=== PATIENT | female | born 1945 | race Caucasian/White ===

== ENCOUNTER 2023-10-11 15:07 | Observation (INO) | payer OTHER, SELFPAY ==
[2023-10-11] VITALS (17 sets, daily range): BP systolic 160–193; BP diastolic 81–107; PULSE 80–91; RESP 12–18; TEMP 36.5–36.9; O2SAT 97–100; BMI 24.7; BMI 23.1
--- NOTE | 2023-10-11 15:51 | CT_ITS ---
We are attempting to reach an attending provider to discuss findings. An addendum with communication details will be sent when the communication is complete. INDICATION: Neuro deficit, acute, stroke suspected EXAMINATION: CT BRAIN - CT Head Stroke Protocol W/O Contrast Injection TECHNIQUE: Multiple axial images were obtained of the head without intravenous contrast. A radiation dose optimization technique was used for this scan. IV Contrast dosage and agent: None. COMPARISON: FINDINGS: BRAIN PARENCHYMA: No intra- or extra-axial hemorrhage. No evidence of acute infarct. No intracranial mass or mass effect. Bilateral white matter microangiopathic ischemic changes. Posterior fossa structures are unremarkable. CSF SPACES: Appropriate for age. No hydrocephalus. Basal cisterns are patent. CALVARIUM, SKULL BASE, PARANASAL SINUSES AND MASTOID AIR CELLS: Clear. No discrete lytic or blastic abnormalities. ORBITS: Both globes, extraocular muscles, optic nerves and retrobulbar fat appear unremarkable. CT/STROKE Brain/Head without Cont IMPRESSION: Age-related changes. Low patient have underlying velocity I also reviewed images and age-related changes but are likely degenerative. Electronically Signed: Reggie Valencia DO at 16:14 EST Reading Location ID and State: [facility] / [place] Tel [phone], Service support ,
--- NOTE | 2023-10-11 15:51 | CT_ITS ---
We are attempting to reach an attending provider to discuss findings. An addendum with communication details will be sent when the communication is complete. INDICATION: Neuro deficit, acute, stroke suspected EXAMINATION: CTA HEAD, AND CTA NECK TECHNIQUE: Noncontrast axial images were obtained of the brain. Subsequently, routine carotid CT angiogram protocol was performed without and with IV contrast. In addition, images were obtained of the [place]. NASCET criteria using the distal ICAs for comparison were used for evaluation of stenoses. 3D reconstructions were reviewed. A radiation dose optimization technique was used for this scan. IV Contrast dosage and agent: COMPARISON: FINDINGS: --CTA NECK: AORTIC ARCH AND BRANCHES: Normal anatomy, patent. RIGHT CCA: No occlusion, significant stenosis or dissection. RIGHT ICA: No occlusion, significant stenosis or dissection. LEFT CCA: No occlusion, significant stenosis or dissection. LEFT ICA: No occlusion, significant stenosis or dissection. RIGHT VERTEBRAL ARTERY: No occlusion, significant stenosis or dissection. LEFT VERTEBRAL ARTERY: No occlusion, significant stenosis or dissection. NECK SOFT TISSUES: Unremarkable. --CTA HEAD: --Anterior circulation: ICAs: Calcifications at the bilateral cavernous segments with less than 50% luminal narrowing. ACAs: No significant stenosis at the visualized segments. ACOM: Present. MCAs: No significant stenosis at the visualized segments. --Posterior circulation: PCOMs: Nonvisualization bilaterally. investment professional: No significant stenosis at the visualized segments. BASILAR ARTERY: No significant stenosis. VERTEBRAL ARTERIES: Calcifications and intraluminal thrombus with severe stenosis at the level of the foramen magnum. Calcifications of the distal right vertebral artery with approximately 50% luminal narrowing. No evidence of intracranial aneurysm or vascular malformation. CT/STROKE CTA Head AND Neck W/Con IMPRESSION: Calcifications and intraluminal thrombus of the distal left vertebral artery with severe stenosis at the level of the foramen magnum. Calcifications of the distal right vertebral artery with approximately 50% luminal narrowing. Electronically Signed: Reggie Valencia DO at 16:37 EST ,
--- NOTE | 2023-10-11 15:52 | NURSING ---
STROKE ALERT CALLED
--- NOTE | 2023-10-11 15:54 | ED.VIS.STROK ---
HPI History of Present Illness Chief Complaint: Dizziness Detail of Chief Complaint: Balance being off with vomiting x 5 Informant: patient and family Limited: other (Patient hard of hearing and family over his head to speak in her language.) Onset/Context/Timing Onset: Today Context: Sudden Onset Timing: Continuous and Waxes and wanes Quality and Location: Positive for - (Balance being off) Onset: 10 AM Current Severity: Mild Maximum Severity: Moderate Worsened by: Nothing specific Relieved by: Nothing Associated Symptoms Associated Symptoms: Positive for Nausea and Vomiting (X 5); Negative for Headache Narrative Narrative: Riley is a 77-year-old woman with history of hypertension who presents with dizziness. When asked to define dizziness she defines as her balance being off. She denied double vision, blurred vision or loss of vision. She did report vomiting 5 times. She states the dizziness got significant to the point where she had to lie down and she began to vomit. She cannot attribute change in position as the cause. She states she was walking back from the mailbox when symptoms started at 10 AM. She denies trouble with speech or swallowing. She denies paresthesia, anesthesia or motor weakness. She denies cardiac or respiratory symptoms. She denies hematemesis or coffee-ground emesis. Prior similar symptoms: No Recent Illness/Hospitalization: No [facility] Medical History Hypertension Home Medications No Known/Unobtainable [No Known Home Medications] 09/11/13 [History Last Taken Unknown] Allergy/AdvReac Type Severity Reaction Status Date / Time No Known Allergies Allergy Verified 10/11/23 15:10 Social History (Updated 10/11/23 @ 15:[address] Victor M Murry MD) household members: other Smoking Status: Never smoker substance use type: does not use ROS ROS ED Constitutional Constitutional ED: Denies chills, fever(s) or subjective Eyes Eyes: Denies blurry vision, change in vision or diplopia ENT ENT ED: Denies ear pain, rhinorrhea or sore throat Cardiovascular Cardiovascular: Denies chest pain, palpitations or racing heartbeat Respiratory/Chest Respiratory/Chest: Denies cough, dyspnea or dyspnea on exertion Gastrointestinal Gastrointestinal: Reports nausea and vomiting; Denies abdominal pain, constipation, diarrhea or melena Genitourinary Genitourinary ED: Denies dysuria, hematuria or urinary frequency Musculoskeletal Musculoskeletal: Denies arthralgias, back pain, myalgias or neck pain Integumentary Denies abscess or rash Neurologic Neurologic: Denies headache(s), paresthesias or weakness Psychiatric Psychiatric: Denies anxiety or depression Endocrine Endocrinology: Denies polydipsia, polyphagia or polyuria Hematologic/Lymphatic Hematologic/Lymphatic: Denies easy bleeding or easy bruising EXAM Physical Exam Const Vital Signs: 10/11/23 15:08 10/11/23 15:19 10/11/23 15:19 Temperature 97.7 F L Temperature Source Temporal Pulse Rate 90 80 Respiratory Rate 14 16 Respiratory Effort Normal Respiratory Pattern Normal Blood Pressure 193/107 H 186/97 H Blood Pressure Mean 135 126 Pulse Ox 97 98 Oxygen Delivery Method Room Air Room Air 10/11/23 15:55 10/11/23 15:58 10/11/23 15:51 Temperature Temperature Source Pulse Rate 82 80 Respiratory Rate 16 16 Respiratory Effort Respiratory Pattern Blood Pressure 176/100 H 178/100 H Blood Pressure Mean 125 126 Pulse Ox 98 98 98 Oxygen Delivery Method Room Air Room Air Room Air Positive well nourished and well developed Constitutional Narrative: Patient is hard of hearing. Family numbers had to speak and patient's [place] tongue for her to understand some of the questions that were asked. General Appearance ED: well developed HEENT Reports TM's clear and moist mucous membranes atraumatic Tympanic Membrane ED: Yes TM's clear bilateral (There is scarring noted bilaterally. Otherwise auditory exam is normal.) Eyes PERRL and EOMs intact bilaterally Eyes Narrative: Patient has central gaze horizontal nystagmus with fast component to the right. General Eye ED: Negative for pale conjunctiva or scleral icterus Neck no lymphadenopathy, supple and no JVD Chest Wall inspection of chest normal and palpation of chest normal Resp normal respiratory effort and clear to auscultation bilaterally Cardio no murmurs Rate: regular rate Rhythm: regular rhythm and abnormal rhythm GI normal to inspection, nondistended, normoactive bowel sounds, soft to palpation, non-tender, non-distended and no masses Auscultation: normoactive bowel sounds Back/Spine no CVA tenderness Extremity normal to inspection General Extremety ED: Negative for deformity General Extremity: Negative for deformity Neuro oriented x3, CN's II-XII intact bilaterally and no sensory deficits noted Neuro Narrative: Lyudmila-Hallpike maneuver was negative. The eye askew test and the head test were negative. Patient is noted to have horizontal nystagmus with fast component to the right. Hayden Coma Scale: document GCS findings Spontaneous Obeys Commands Oriented 15 Sensorium / Orientation: alert Motor Exam: strength 5/5 throughout Psych mental status grossly normal Skin no wounds General Skin Exam: Negative for jaundice Lesions: no lesions Rashes: no rashes NIHSS NIHSS Initial: 1a Level of Consciousness: 0 1b LOC Questions (Score 2 if aphasic/stupor): 0 1c LOC Commands (Only score 1st attempt): 0 2 Best Gaze (If aphasic, use reflexive mvmts.): 0 3 Visual: 0 4 Facial Palsy: 0 5 Motor Arm Right (UN = amputation/fusion): 0 5 Motor Arm Left: 0 6 Motor Leg Right: 0 6 Motor Leg Left: 0 7 Limb ataxia (Only + if out of proportion): 0 8 Sensory (Aphasia/stupor=0 or 1, coma=2): 0 9 Best Language: 0 10 Dysarthria (mute, coma=2, intubated=UN): 0 11 Extinction and Inattention (only scored if +): 0 Total Score: 0 MDM MDM MDM Narrative Medical decision making narrative: With complaints of dizziness that essentially is continuous central gaze nystagmus and the fact that nystagmus is not positional concern that this represents a posterior circulatory stroke. Stroke team was called. Patient is outside the window for thrombolytics since onset was 10 AM. History & Record Review Discussion w/independent historian: Patient and Family Lab Data Attestation: I reviewed the patient's lab results. Lab results narrative: CBC is unremarkable. Basic metabolic panel is unremarkable. Glucose is 149 with a normal CO2 and anion gap. First troponin is normal. Labs: Laboratory Results - last 24 hr 10/11/23 10/11/23 15:45 15:55 WBC 9.1 RBC 4.30 Hgb 12.4 Hct 37.4 MCV 87.0 MCH 28.8 MCHC 33.2 RDW Std Deviation 40.1 RDW Coeff of Walter 12.6 Plt Count 187 MPV 10.8 Immature Gran % (Auto) 0.200 Neut % (Auto) 92.1 H Lymph % (Auto) 5.5 L Leon % (Auto) 1.9 Eos % (Auto) 0.1 Baso % (Auto) 0.2 Absolute Neuts (auto) 8.4 H Absolute Lymphs (auto) 0.50 L Nucleated RBC % 0 PT 12.8 INR 1.0 APTT 29.4 Sodium 138 Potassium 3.7 Chloride 105 Carbon Dioxide 31.0 Anion Gap 2 L BUN 19 H Creatinine 0.69 Estim Creat Clear Calc 43.74 Est GFR (MDRD) Af Amer 106 Est GFR (MDRD) Non-Af 88 BUN/Creatinine Ratio 27.5 H Glucose 174 H Calcium 9.5 Troponin I High Sens 4 POC Glucose 149 H Radiography Diagnostic Testing: Clinical Impression(s) from Imaging Studies Brain CT 10/11/23 15:51 IMPRESSION: Age-related changes. [place] patient have underlying velocity I also reviewed images and age-related changes but are likely degenerative. Electronically Signed: Reggie Valencia DO at 16:14 EST , ADDENDUM: 10/11/23 1623 IMPRESSION: Age-related changes. [place] patient have underlying velocity I also reviewed images and age-related changes but are likely degenerative. N.B. : The above Results were Read Back by Reggie Valencai DO to Victor M Murry MD, and understanding confirmed on 10/11/2023 16:17:00 (ET). Electronically Signed: Reggie Valencia DO at 16:14 EST , Head/Neck CTA 10/11/23 15:51 IMPRESSION: Calcifications and intraluminal thrombus of the distal left vertebral artery with severe stenosis at the level of the foramen magnum. Calcifications of the distal right vertebral artery with approximately 50% luminal narrowing. Electronically Signed: Reggie Valencia DO at 16:37 EST , EKG Initial EKG: Attestation: I personally reviewed and interpreted this EKG as follows: Interpretation: Sinus Rhythm (Rate is 85. There are premature ventricular complexes noted. IN interval is 192 ms per QRS duration 150 ms. QT duration 438 ms. Addison is to the left. There is an RR prime in V1 and V2 consistent with right bundle branch block) Treatment and Re-Evaluation Narrative: Per neurologist at [facility] recommendation is aspirin and MRI. Stroke Documentation Questions Stroke Team Activated: Yes Reviewed Inclusion/Exclusion criteria: No IV Thrombolytic Administered: No No contraindications from thrombolytic administration: No Discharge Plan Triage Chief Complaint: Dizziness ED Provider: Victor M Murry Dx/Rx/DC Orders Clinical Impression: Vertigo due to acute cerebrovascular disease, Nystagmus, Hypertension Prescriptions: No Action No Known Home Medications Primary Care Provider: Houston Collazo Referrals: Houston Collazo DO [Primary Care Provider] - Disposition Disposition: Acute Care Hospital [facility]
--- NOTE | 2023-10-11 15:55 | NURSING ---
NO OLD EKGS
[2023-10-11 16:06] LABS: Absolute Neutrophil Count 8.4 X10^3/uL (2.0-7.7); Basophil# 0.02 X10^3/uL; Basophil% 0.2 % (0-1); Eosinophil# 0.01 X10^3/uL; Eosinophils% 0.1 % (0-5); Hematocrit 37.4 % (37-47); Hemoglobin 12.4 g/dL (12.0-15.0); Lymphocyte % 5.5 % (19-41); Mean Corp Hgb Conc 33.2 g/dL (32-36); Mean Corpuscular Hgb 28.8 pg (27.0-32.0); Mean Platelet Vol. 10.8 fl (6.2-12.0); Monocyte# 0.17 X10^3/uL; Monocyte% 1.9 % (0-10); NRBC Flagged by Analyzer 0 % (0-5); Neutrophil # 8.37 X10^3/uL (2.7-7.7); Neutrophil % 92.1 % (47-70); POSITIVE DIFFERENTIAL YES; Platelet Count 187 K/mm3 (150-450); RBC Distribution Width CV 12.6 % (11.6-14.6); RBC Distribution Width SD 40.1 fl (35.1-43.9); White Blood Count 9.1 K/mm3 (4.4-11.0)
[2023-10-11 16:09] LABS: Differential Indicated SCAN CRITERIA MET
[2023-10-11 16:14] LABS: Prothrombin Time (Protime)PT. 12.8 SECONDS (11.7-14.9)
[2023-10-11 16:14] LABS: Bedside Glucose 149 mg/dL (74-106)
[2023-10-11 16:15] LABS: Partial Thromboplast Time 29.4 Seconds (24.1-36.2)
[2023-10-11 16:22] LABS: Anion Gap 2 (5-15); BUN 19 mg/dL (7-18); BUN/Creat Ratio 27.5 RATIO (10-20); Calcium,Total 9.5 mg/dL (8.5-10.1); Chloride 105 mmol/L (98-107); Creatinine, Serum 0.69 mg/dL (0.55-1.02); EST Glomerular Filtration Rate 88 mL/min (>60); Est Glom Filt Rate - Afr Amer 106 mL/min (>60); Estimated Creatinine Clearance 43.74 ml/min; Glucose 174 mg/dL (74-106); Potassium 3.7 mmol/L (3.5-5.1); Sodium Level 138 mmol/L (136-145); Troponin-I HS 4 pg/mL (3.0-54.0)
--- NOTE | 2023-10-11 16:45 | NURSING ---
DR NICK BAKER
--- NOTE | 2023-10-11 16:52 | NURSING ---
PCU OBS [facility]ERO [facility]STIB[facility]ILAR INSUFFICIENCY
[2023-10-11 17:16] LABS: Differential Comment SCANNED
--- NOTE | 2023-10-11 17:36 | PCM.HP.STD ---
HPI - General General Date of Admission: 10/11/23 Date of Service: 10/11/23 Chief Complaint: Dizziness HPI Narrative ANGELITA DELGADO, is a 77F with a history of hypertension who presented to [facility] 10/11 with dizziness/being off balance with vomiting 5 times. She is dizzy to the point she had to lay down. This all started at 10 AM. Patient presented to the ED and stroke team was called, patient outside time window for thrombolytics. In ED telemetry stroke neurologist recommended admission with echo and MRI head without contrast. Hospitalist contacted for admission. Patient seen with family members at bedside, somewhat poor historian with difficulty describing her symptoms however she reports when she was up moving around earlier she had a dizzy feeling at 10 AM and it was not associated with going from sitting to standing and would be at random though it has not happened when she has been sitting down. Cannot describe this sensation any further but did vomit 5 times. She denies any changes in vision, has a slight headache but has no other complaints at this time. [facility] Medical History Hypertension Home Medications metoprolol tartrate 50 mg tablet 50 mg PO DAILY 10/11/23 [History Last Taken Unknown] metoprolol tartrate 50 mg tablet (Lopressor) 25 mg PO QHS 10/11/23 [History Last Taken Unknown] Allergy/AdvReac Type Severity Reaction Status Date / Time No Known Allergies Allergy Verified 10/11/23 15:10 Social History (Updated 10/11/23 @ 15:[address] Victor M Murry MD) household members: other Smoking Status: Never smoker substance use type: does not use ROS ROS Narrative General: Denies fever/chills HENT: Slight headache, denies stuffy nose, denies sore throat EYES: Denies changes in vision Resp: Denies cough, denies shortness of breath Cardiac: Denies chest pain GI: Denies abdominal pain, denies changes in bowel, had episodes of emesis earlier : Denies changes in urination Extremity: Denies swelling MSK: Denies weakness Neuro: Denies any numbness/tingling, had dizzy feeling earlier most recently as she was coming into the ER Heme: Denies any bleeding or bruising Skin: Denies rashes Psychiatric: No complaints voiced Vital Signs Vital Signs Vital Signs: 10/11/23 15:08 10/11/23 15:19 10/11/23 15:19 Temperature 97.7 F L Temperature Source Temporal Pulse Rate 90 80 Respiratory Rate 14 16 Respiratory Effort Normal Respiratory Pattern Normal Blood Pressure 193/107 H 186/97 H Blood Pressure Mean 135 126 Pulse Ox 97 98 Oxygen Delivery Method Room Air Room Air 10/11/23 15:55 10/11/23 15:58 10/11/23 15:51 Temperature Temperature Source Pulse Rate 82 80 Respiratory Rate 16 16 Respiratory Effort Respiratory Pattern Blood Pressure 176/100 H 178/100 H Blood Pressure Mean 125 126 Pulse Ox 98 98 98 Oxygen Delivery Method Room Air Room Air Room Air 10/11/23 16:21 10/11/23 16:30 10/11/23 16:50 Temperature Temperature Source Pulse Rate 86 82 82 Respiratory Rate 16 18 16 Respiratory Effort Respiratory Pattern Blood Pressure 162/86 H 163/89 H 163/89 H Blood Pressure Mean 111 113 113 Pulse Ox 99 99 99 Oxygen Delivery Method Room Air Room Air 10/11/23 17:00 10/11/23 17:07 10/11/23 17:30 Temperature Temperature Source Pulse Rate 83 89 86 Respiratory Rate 12 16 14 Respiratory Effort Respiratory Pattern Blood Pressure 161/83 H 172/99 H 165/96 H Blood Pressure Mean 109 123 119 Pulse Ox 100 97 97 Oxygen Delivery Method Room Air Room Air Room Air Weight Weight: 67.449 kg Body Mass Index (BMI) 24.7 Physical Exam Narrative General: Alert, oriented, no apparent distress HEENT: Atraumatic, normocephalic Eyes: Anicteric, normal conjunctiva, extraocular movements intact however has some nystagmus on vertical gaze and what seems to be sustained nystagmus on far left lateral gaze Neck: Supple Respiratory: Clear to auscultation bilaterally, normal respiratory effort Cardiovascular: Regular rate and rhythm GI: Soft, nontender, nondistended Extremities: No edema Musculoskeletal: Strength 5 out of 5 in right upper extremity, 5 out of 5 left upper extremity, 5 out of 5 right lower extremity, 5 out of 5 left lower extremity Neuro: No overt focal neurological deficits, cranial nerves II through XII intact, [id number] without significant difficulty bilaterally Skin: No rashes appreciated Psych: Cooperative Results Lab / Micro Data 10/11/23 15:45 10/11/23 15:45 Labs: Laboratory Results - last 24 hr 10/11/23 15:45: WBC 9.1, RBC 4.30, Hgb 12.4, Hct 37.4, MCV 87.0, MCH 28.8, MCHC 33.2, RDW Std Deviation 40.1, RDW Coeff of Walter 12.6, Plt Count 187, MPV 10.8, Immature Gran % (Auto) 0.200, Neut % (Auto) 92.1 H, Lymph % (Auto) 5.5 L, [place] % (Auto) 1.9, Eos % (Auto) 0.1, Baso % (Auto) 0.2, Absolute Neuts (auto) 8.4 H, Absolute Lymphs (auto) 0.50 L, Nucleated RBC % 0, Differential Comment SCANNED, PT 12.8, INR 1.0, APTT 29.4, Sodium 138, Potassium 3.7, Chloride 105, Carbon Dioxide 31.0, Anion Gap 2 L, BUN 19 H, Creatinine 0.69, Estim Creat Clear Calc 43.74, Est GFR (MDRD) Af Amer 106, Est GFR (MDRD) Non-Af 88, BUN/Creatinine Ratio 27.5 H, Glucose 174 H, Calcium 9.5, Troponin I High Sens 4 10/11/23 15:55: POC Glucose 149 H Imagaing Radiology Impression Brain CT 10/11/23 15:51 IMPRESSION: Age-related changes. Low patient have underlying velocity I also reviewed images and age-related changes but are likely degenerative. Electronically Signed: Reggie Valencia DO at 16:14 EST , ADDENDUM: 10/11/23 1623 IMPRESSION: Age-related changes. Low patient have underlying velocity I also reviewed images and age-related changes but are likely degenerative. N.B. : The above Results were Read Back by Reggie Valencia DO to Victor M Murry MD, and understanding confirmed on 10/11/2023 16:17:00 (ET). Electronically Signed: Reggie Valencia DO at 16:14 EST , Head/Neck CTA 10/11/23 15:51 IMPRESSION: Calcifications and intraluminal thrombus of the distal left vertebral artery with severe stenosis at the level of the foramen magnum. Calcifications of the distal right vertebral artery with approximately 50% luminal narrowing. Electronically Signed: Reggie Valencia DO at 16:37 EST , ADDENDUM: 10/11/23 1646 IMPRESSION: Calcifications and intraluminal thrombus of the distal left vertebral artery with severe stenosis at the level of the foramen magnum. Calcifications of the distal right vertebral artery with approximately 50% luminal narrowing. N.B. : The above Results were Read Back by Reggie Valencia DO to Victor M Murry MD, and understanding confirmed on 10/11/2023 16:39:22 (ET). Electronically Signed: Reggie Valencia DO at 16:37 EST , Assessment & Plan Assessment/Plan (1) Hypertension: (2) Hypertension: PLAN: Plan #Vertigo with nystagmus -Admit to tele -CT head w/ age-related changes in ED -CTA head and neck: Calcifications and intraluminal thrombus of the distal left vertebral artery with severe stenosis at the level of the foramen magnum. Calcifications of the distal right vertebral artery with approximately 50% luminal narrowing. -I personally called back and discussed these findings with stroke neurologist who evaluated her now that CTA head and neck official read was available, it was felt that there is no need for emergent transfer and it was recommended to load with 600 of Plavix and 81 of aspirin followed by Plavix 75 and aspirin 81 daily likely for 90 days -They also recommended SOC reconsult in the morning for another neuro evaluation and possibly the following day for repeat evaluation as well. Did discuss again transfer versus staying and it was felt that staying in our institution was reasonable -MRI ordered -NIH q4hr -asa, statin, Plavix -Echo w/ bubble study -PT/OT/Speech eval -Hold BP medications to allow for permissive hypertension for 24 hours unless SBP greater than 220 or DBP greater than 120 or until stroke is ruled out #Hypertension -Holding home metoprolol #DVT ppx: Lovenox subcu Renae Garland MD Time spent in the patient's overall evaluation,decision-making process, review of diagnostic data, adjustment of management, discussion with other providers, nursing nursing and ancillary staff involved in patient's care documentation, 55 minutes Charges/Coding Visit Charges Inpatient E&M: 94654 Init Hosp L2
--- NOTE | 2023-10-11 17:40 | ECHOD_ITS ---
Reason For Study: TIA/Stroke Procedure This was a 2D Doppler, Color Flow transthoracic echocardiogram. Exam performed portable in patient room. Left Ventricle Normal LV size. Mild concentric left ventricular hypertrophy. The left ventricular ejection fraction is 65 %. Stage 2 diastolic dysfunction. Right Ventricle Normal right ventricle. Atria The left atrium is mildly enlarged. Normal right atrium. Bubble contrast study is negative for PFO/ASD. Mitral Valve Mild mitral annular calcification. Mild-Moderate (1-2+) mitral valve insufficiency. Tricuspid Valve Mild tricuspid valve insufficiency. Right ventricular systolic pressure estimated to be 339 mmHg. Aortic Valve Trisinus/trileaflet aortic valve. Mild diffuse aortic valve thickening. Trivial aortic valve insufficiency. Pulmonic Valve The pulmonic valve is not well visualized. Trivial pulmonic valve insufficiency. Great Vessels Normal sized aortic root. Pericardium/Pleural No pericardial effusion. MMode/2D Measurements & Calculations LVIDd: 4.6 cm IVSd: 1.2 cm Ao root diam: 3.2 cm LVIDs: 2.9 cm LVPWd: 1.1 cm RVDd: 4.2 cm FS: 37.0 % LAV(MOD-bp): 64.2 ml LVAd ap4: 23.8 cm2 SV(MOD-sp4): 42.2 ml LAV(MOD-bp) Indexed: 37.9 ml/m2 LVLd ap4: 6.6 cm LAV(MOD-sp2): 61.5 ml EDV(MOD-sp4): 71.4 ml LAV(MOD-sp4): 52.6 ml EDV(sp4-el): 73.0 ml LVAs ap4: 13.4 cm2 LVLs ap4: 5.4 cm ESV(MOD-sp4): 29.2 ml ESV(sp4-el): 28.2 ml EF(MOD-sp4): 59.1 % EF(sp4-el): 61.3 % SV(sp4-el): 44.7 ml LA A4 area: 20.1 cm2 LA dimension(2D): 3.5 cm RA A4 area: 16.3 cm2 TAPSE: 3.2 cm Time Measurements MV dec time: 0.20 sec Doppler Measurements & Calculations MV E max rudolph: 90.1 cm/sec Lat Peak E' Rudolph: 9.1 cm/sec Med Peak E' Rudolph: 5.5 cm/sec MV A max rudolph: 84.9 cm/sec E/E' lat: 9.9 E/E' med: 16.2 MV E/A: 1.1 Ao V2 max: 168.1 cm/sec LV V1 max: 99.6 cm/sec MV dec slope: 452.7 cm/sec2 Ao max P.3 mmHg LV V1 max P.0 mmHg Ao V2 mean: 113.5 cm/sec Ao mean P.0 mmHg Ao V2 VTI: 38.2 cm PA V2 max: 89.8 cm/sec PI end-d rudolph: 95.1 cm/sec TR max rudolph: 291.9 cm/sec TR max P.1 mmHg ECHO/Echo Complete Interpretation Summary Mild concentric left ventricular hypertrophy. The left ventricular ejection fraction is 65 %. Stage 2 diastolic dysfunction. The left atrium is mildly enlarged. Mild-Moderate (1-2+) mitral valve insufficiency. Right ventricular systolic pressure estimated to be 339 mmHg. Mild tricuspid valve insufficiency. Bubble contrast study is negative for PFO/ASD. Ordering Physician: Renae Garland Referring Physician: Houston Collazo Performed By: Kelsey Estes, UVALDO, RVT
--- NOTE | 2023-10-11 17:40 | MRI_ITS ---
STUDY: MRI BRAIN WITHOUT CONTRAST REASON FOR EXAM: Female, 77 years old. r/o cva, temporary altered mental status TECHNIQUE: Standardized multiplanar fat and water weighted pulse sequences were obtained. COMPARISON: CT the brain October 11, 2023 FINDINGS: Moderate atrophy and advanced periventricular white matter ischemic changes without mass effect or restricted diffusion. Normal bilateral basal ganglia. Normal thalami. There is no extra-axial fluid accumulation. Normal flow voids within the major intracranial circulation suggesting patency by spin echo criteria. Normal sella turcica, pituitary gland, infundibular stalk, optic chiasm and hypothalamus. Normal tectal plate and pineal gland. Normal midbrain, afshan and medulla. Normal cerebellum. Normal basal cisterns. Normal bilateral temporal bones. Normal bilateral internal auditory canals. Postsurgical changes of the orbits.. Normal visualized paranasal sinuses. Normal calvarium and skull base. Normal visualized soft tissue structures. Normal visualized upper cervical spine. MRI/Brain without Contrast IMPRESSION: Moderate atrophy and advanced periventricular white matter ischemic changes without evidence for acute infarct. Electronically Signed: Cem Minor MD at 19:33 EST ,
[2023-10-11] MEDS: Ondansetron 4 MG/2 ML Vial IV ×2 (18:04→21:47)
--- NOTE | 2023-10-11 18:15 | RAD_ITS ---
INDICATION: Neuro deficit, acute, stroke suspected EXAMINATION/TECHNIQUE: X-RAY - XR Chest 1 View COMPARISON: FINDINGS: LINES/DEVICES: None. LUNGS: No consolidation, edema or effusion. Mild interstitial prominence. No pneumothorax. MEDIASTINUM AND CARDIOVASCULAR STRUCTURES: Cardiac silhouette not enlarged. Central airways and mediastinal contour are unremarkable. BONES AND SOFT TISSUES: Unremarkable. RAD/Chest 1 View IMPRESSION: Mild interstitial prominence. Electronically Signed: Reggie Valencia DO at 18:40 EST ,
[2023-10-11] MEDS: Aspirin 81 MG TAB.CHEW PO (21:45)
[2023-10-11] MEDS: Atorvastatin Calcium 80 MG Tablet PO (21:46)
[2023-10-11] MEDS: Clopidogrel Bisulfate 300 MG Tablet 600 MG PO (21:46)
[2023-10-12] VITALS (11 sets, daily range): BP systolic 140–161; BP diastolic 68–88; PULSE 71–108; RESP 12–16; TEMP 36.6–37.1; O2SAT 95–98; BMI 23.1
[2023-10-12 07:01] LABS: Absolute Lymphocyte Count 1.08 X10^3/uL (0.83-4.51); Absolute Neutrophil Count 6.8 X10^3/uL (2.0-7.7); Basophil# 0.03 X10^3/uL; Basophil% 0.3 % (0-1); Eosinophil# 0.06 X10^3/uL; Eosinophils% 0.7 % (0-5); Hematocrit 37.4 % (37-47); Hemoglobin 12.3 g/dL (12.0-15.0); Lymphocyte # 1.08 X10^3/ul (0.83-4.51); Lymphocyte % 12.4 % (19-41); Mean Corp Hgb Conc 32.9 g/dL (32-36); Mean Corpuscular Hgb 28.9 pg (27.0-32.0); Mean Platelet Vol. 10.9 fl (6.2-12.0); Monocyte# 0.64 X10^3/uL; Monocyte% 7.4 % (0-10); NRBC Flagged by Analyzer 0 % (0-5); Neutrophil # 6.84 X10^3/uL (2.7-7.7); Neutrophil % 78.7 % (47-70); Platelet Count 200 K/mm3 (150-450); RBC Distribution Width CV 12.7 % (11.6-14.6); RBC Distribution Width SD 40.9 fl (35.1-43.9); Red Blood Count 4.25 M/mm3 (4.2-5.4); White Blood Count 8.7 K/mm3 (4.4-11.0)
[2023-10-12 08:05] LABS: Anion Gap 3 (5-15); BUN 17 mg/dL (7-18); BUN/Creat Ratio 23.8 RATIO (10-20); Calcium,Total 9.7 mg/dL (8.5-10.1); Chloride 105 mmol/L (98-107); Cholesterol 164 mg/dL (200); Creatinine, Serum 0.71 mg/dL (0.55-1.02); EST Glomerular Filtration Rate 85 mL/min (>60); Est Glom Filt Rate - Afr Amer 102 mL/min (>60); Estimated Creatinine Clearance 43.74 ml/min; Glucose 104 mg/dL (74-106); High Density Lipoprotein 77 mg/dL; Potassium 3.3 mmol/L (3.5-5.1); Sodium Level 137 mmol/L (136-145); Thyroid Stim Hormone (TSH) 0.69 uIU/mL (0.358-3.74); Triglycerides 51 mg/dL; Very Low Density Lipoprotein 10 mg/dL (5-40)
[2023-10-12] MEDS: 0.9% Saline Lock 10 ML Syringe IV (09:51)
[2023-10-12] MEDS: Ondansetron 4 MG/2 ML Vial IV (09:51)
[2023-10-12] MEDS: Metoprolol Tartrate 50 MG Tablet PO (09:54)
[2023-10-12] MEDS: Clopidogrel Bisulfate 75 MG Tablet PO (09:55)
[2023-10-12] MEDS: Enoxaparin 40 MG/0.4 ML Syringe SC (09:55)
[2023-10-12] MEDS: Aspirin 81 MG TAB.CHEW PO (09:55)
--- NOTE | 2023-10-12 12:27 | PN.HOSP_ITS ---
Reason for Visit Reason for Visit: Lightheadedness Subjective Subjective Patient is a 77-year-old female who presented to the emergency department at [facility] on 10/11/2023 complaining of dizziness/lightheadedness. It started at 10 AM on the day of presentation. She reported that she felt dizzy and being off balance with vomiting 5 times. She was so dizzy that she had to lie down. Stroke team was called on arrival to the emergency department but unfortunately patient was outside the window for thrombolytics. The ED stroke neurologist recommended admission with an echo and MRI of the brain. At the time evaluation by the hospitalist on admission she was feeling somewhat better however reporting since positional changes make her worse. At the time of my evaluation today she reported that this was more like lightheadedness and dizziness. We did obtain orthostatic vital signs which were unremarkable. The CTA of her head and neck which was performed the emergency department did show calcification and thrombus in the vertebral arteries with severe stenosis of the vertebral artery. The case was discussed with the ER neurologist and they felt that she was stable to stay at this institution however did recommend initiating Plavix and aspirin after a Plavix load of 600 mg which was performed. Antihypertensives were held to allow for permissive hypertension and she was maintained on aspirin and Plavix as well as statin. Again today, the patient is a poor historian initially describing this is lightheadedness and not true dizziness however she was noted to have vertigo go with nystagmus with right lateral gaze. Neurology was reconsulted per neurology recommendations and they feel that she has vertebral artery insufficiency leading to vertigo and gait instability. Nystagmus was noted on exam when the patient was symptomatic Objective Data Objective Data Vital Signs: Vital Signs Temp Pulse Resp BP Pulse Ox O2 Del Method 98.0 F 85 14 151/68 H 96 Room Air 10/12/23 10:00 10/12/23 10:00 10/12/23 10:00 10/12/23 10:00 10/12/23 10:00 10/12/23 10:00 Oxygen Delivery Method Room Air Weight: 63.1 kg Body Mass Index (BMI) 23.1 Intake & Output: Intake and Output for Last 24 Hours 10/10/23 10/11/23 10/12/23 23:59 23:59 23:59 Intake Total 740 / 740 Balance 740 / 740 Lab / Micro Data 10/12/23 06:40 10/12/23 06:40 Labs: Laboratory Results - last 24 hr 10/11/23 15:45: WBC 9.1, RBC 4.30, Hgb 12.4, Hct 37.4, MCV 87.0, MCH 28.8, MCHC 33.2, RDW Std Deviation 40.1, RDW Coeff of Walter 12.6, Plt Count 187, MPV 10.8, Immature Gran % (Auto) 0.200, Neut % (Auto) 92.1 H, Lymph % (Auto) 5.5 L, [place] % (Auto) 1.9, Eos % (Auto) 0.1, Baso % (Auto) 0.2, Absolute Neuts (auto) 8.4 H, Absolute Lymphs (auto) 0.50 L, Nucleated RBC % 0, Differential Comment SCANNED, PT 12.8, INR 1.0, APTT 29.4, Sodium 138, Potassium 3.7, Chloride 105, Carbon Dioxide 31.0, Anion Gap 2 L, BUN 19 H, Creatinine 0.69, Estim Creat Clear Calc 43.74, Est GFR (MDRD) Af Amer 106, Est GFR (MDRD) Non-Af 88, BUN/Creatinine Ratio 27.5 H, Glucose 174 H, Calcium 9.5, Troponin I High Sens 4 10/11/23 15:55: POC Glucose 149 H 10/12/23 06:40: WBC 8.7, RBC 4.25, Hgb 12.3, Hct 37.4, MCV 88.0, MCH 28.9, MCHC 32.9, RDW Std Deviation 40.9, RDW Coeff of Walter 12.7, Plt Count 200, MPV 10.9, Immature Gran % (Auto) 0.500, Neut % (Auto) 78.7 H, Lymph % (Auto) 12.4 L, [place] % (Auto) 7.4, Eos % (Auto) 0.7, Baso % (Auto) 0.3, Absolute Neuts (auto) 6.8, Absolute Lymphs (auto) 1.08, Nucleated RBC % 0, Sodium 137, Potassium 3.3 L, Chloride 105, Carbon Dioxide 29.0, Anion Gap 3 L, BUN 17, Creatinine 0.71, Estim Creat Clear Calc 43.74, Est GFR (MDRD) Af Amer 102, Est GFR (MDRD) Non-Af 85, BUN/Creatinine Ratio 23.8 H, Glucose 104, Calcium 9.7, Triglycerides 51, Cholesterol 164, LDL Cholesterol 77, VLDL Cholesterol 10, HDL Cholesterol 77, TSH 0.69 Radiography Diagnostic Testing: Radiology Impression Brain CT 10/11/23 15:51 IMPRESSION: Age-related changes. Low patient have underlying velocity I also reviewed images and age-related changes but are likely degenerative. Electronically Signed: Reggie Valencia DO at 16:14 EST , ADDENDUM: 10/11/23 1623 IMPRESSION: Age-related changes. Low patient have underlying velocity I also reviewed images and age-related changes but are likely degenerative. N.B. : The above Results were Read Back by Reggie Valencia DO to Victor M Murry MD, and understanding confirmed on 10/11/2023 16:17:00 (ET). Electronically Signed: Reggie Valencia DO at 16:14 EST , Head/Neck CTA 10/11/23 15:51 IMPRESSION: Calcifications and intraluminal thrombus of the distal left vertebral artery with severe stenosis at the level of the foramen magnum. Calcifications of the distal right vertebral artery with approximately 50% luminal narrowing. Electronically Signed: Reggie Valencia DO at 16:37 EST , ADDENDUM: 10/11/23 1646 IMPRESSION: Calcifications and intraluminal thrombus of the distal left vertebral artery with severe stenosis at the level of the foramen magnum. Calcifications of the distal right vertebral artery with approximately 50% luminal narrowing. N.B. : The above Results were Read Back by Reggie Valencia DO to Victor M Murry MD, and understanding confirmed on 10/11/2023 16:39:22 (ET). Electronically Signed: Reggie Valencia DO at 16:37 EST , Brain MRI 10/11/23 17:40 IMPRESSION: Moderate atrophy and advanced periventricular white matter ischemic changes without evidence for acute infarct. Electronically Signed: Cem Minor MD at 19:33 EST , Chest X-Ray 10/11/23 18:15 IMPRESSION: Mild interstitial prominence. Electronically Signed: Reggie Valencia DO at 18:40 EST , Physical Exam Const alert, oriented x3, no apparent distress and well nourished Constitutional Narrative: Older, white female, sitting up in bed, family at bedside, patient appears comfortable at this time, nontoxic HEENT head/scalp atraumatic and moist oral mucous membranes HEENT Narrative: Dentition is poor, Mallampati is 2, no thrush Head and Scalp: normocephalic Resp normal respiratory effort, no retractions, no use of accessory muscles and clear to auscultation bilaterally Auscultation: Negative for rales, rhonchi or wheezes Cardio regular rate, regular rhythm, S1 normal heart sound, S2 normal heart sound, no murmurs, no rub and no clicks GI normal to inspection, nondistended, normoactive bowel sounds, soft to palpation and non-tender Extremity no clubbing, cyanosis or edema Extremity Narrative: Pedal pulses are 2+ Neuro oriented x3, CN's II-XII intact bilaterally, moves all extremities and no focal motor deficits Speech: speech normal Psych affect normal Psych Narrative: Eye contact is good, patient is pleasant Assessment & Plan Assessment/Plan (1) Vertebrobasilar insufficiency: (2) Nystagmus: (3) Vertigo: PLAN: Plan Vertigo secondary to vertebrobasilar insufficiency -MRI was unremarkable -Echocardiogram with bubble study is pending -Continue every 4 hours neurochecks -Patient has been loaded with Plavix and will continue aspirin and Plavix for 3 weeks at which point she can transition to monotherapy -Lipitor to 40 mg daily -Lipids are fairly well-controlled -Check hemoglobin A1c -Add IV fluids at 100 cc/h to help maintain blood pressure elevation -Allow for permissive hypertension for 36 hours after symptom onset with as needed antihypertensives for blood pressure greater than 220/110 -PT/OT evaluation -Discussed the case with Dr. Rizvi from [facility] neurology and he recommended that she have ongoing symptoms despite being on aspirin and Plavix that she was should be transferred for endovascular neurosurgery evaluation and recommended that we watch her here for another 24 hours and consider transfer if her symptoms do not continue to improve. -Will try scopolamine patch if not too sedating to help with symptoms Hypokalemia -40 mill equivalents p.o. potassium replacement -Recheck in a.m. Hypertension -Hold metoprolol and allow for permissive hypertension DVT prophylaxis -Enoxaparin CODE STATUS Full code Charges/Coding Visit Charges Inpatient E&M: 58964 Subs Hosp L2
[2023-10-12] MEDS: Potassium Chloride Oral Tablet 20 MEQ 40 MEQ PO (13:24)
[2023-10-12] MEDS: 0.9% Normal Saline (1000mL) 1,000 ML 100 ML IV ×2 (13:24→23:17)
[2023-10-12] MEDS: Scopolamine 1mg/72hr Patch 1 PATCH TD (13:24)
[2023-10-12] MEDS: Atorvastatin Calcium 40 MG Tablet PO (20:53)
[2023-10-13 03:00] VITALS: BP 155/84; PULSE 66; RESP 16; TEMP 37.1; O2SAT 100
[2023-10-13 05:01] LABS: Absolute Lymphocyte Count 1.58 X10^3/uL (0.83-4.51); Absolute Neutrophil Count 5.2 X10^3/uL (2.0-7.7); Basophil# 0.02 X10^3/uL; Basophil% 0.3 % (0-1); Eosinophil# 0.08 X10^3/uL; Eosinophils% 1.1 % (0-5); Hematocrit 36.9 % (37-47); Hemoglobin 11.9 g/dL (12.0-15.0); Lymphocyte # 1.58 X10^3/ul (0.83-4.51); Lymphocyte % 21.1 % (19-41); Mean Corp Hgb Conc 32.2 g/dL (32-36); Mean Corpuscular Hgb 29.6 pg (27.0-32.0); Mean Corpuscular Volume 91.8 fL (81-99); Mean Platelet Vol. 11.1 fl (6.2-12.0); Monocyte# 0.65 X10^3/uL; Monocyte% 8.7 % (0-10); NRBC Flagged by Analyzer 0 % (0-5); Neutrophil # 5.15 X10^3/uL (2.7-7.7); Neutrophil % 68.5 % (47-70); Platelet Count 198 K/mm3 (150-450); RBC Distribution Width CV 12.7 % (11.6-14.6); RBC Distribution Width SD 42.5 fl (35.1-43.9); Red Blood Count 4.02 M/mm3 (4.2-5.4); White Blood Count 7.5 K/mm3 (4.4-11.0)
[2023-10-13 05:38] LABS: Anion Gap 6 (5-15); BUN 17 mg/dL (7-18); BUN/Creat Ratio 24.1 RATIO (10-20); Calcium,Total 9.1 mg/dL (8.5-10.1); Chloride 110 mmol/L (98-107); Creatinine, Serum 0.71 mg/dL (0.55-1.02); EST Glomerular Filtration Rate 86 mL/min (>60); Est Glom Filt Rate - Afr Amer 104 mL/min (>60); Estimated Creatinine Clearance 43.74 ml/min; Glucose 101 mg/dL (74-106); Magnesium 2.3 mg/dL (1.6-2.6); Potassium 4.4 mmol/L (3.5-5.1); Sodium Level 140 mmol/L (136-145)
[2023-10-13 07:32] LABS: Hemoglobin A1c 5.3 % (3.8-5.6)
[2023-10-13 07:45] VITALS: O2SAT 99
--- NOTE | 2023-10-13 08:23 | CASEMGMT ---
Social Work As per admitting RN, pt does not have LW/POA and declined further information. ASHLEY Beck
[2023-10-13 08:30] VITALS: BP 153/82; PULSE 55; RESP 12; TEMP 36.3; O2SAT 99
[2023-10-13] MEDS: Clopidogrel Bisulfate 75 MG Tablet PO (08:33)
[2023-10-13] MEDS: Enoxaparin 40 MG/0.4 ML Syringe SC (08:33)
[2023-10-13] MEDS: Aspirin 81 MG TAB.CHEW PO (08:35)
--- NOTE | 2023-10-13 09:32 | CASEMGMT ---
Social Work PHQ-9 not completed as pt did not have a stroke. ASHLEY Beck
[2023-10-13] MEDS: 0.9% Normal Saline (1000mL) 1,000 ML 100 ML IV (09:49)
--- NOTE | 2023-10-13 11:53 | CASEMGMT ---
LYDIA AMES NOTE: Pr Dr Pena, pt will be discharging home today. LYDIA AMES to room. Pt resting in bed. Family @ bedside. Discussed therapy recommendations. Questions answered re: HHC and OP therapy. Pt and family state would like pt to get therapy in the home w/ [facility] and state are agreeable to private-pay. LYDIA AMES attempted to contact [facility] x 3 today w/no success and it is unknown if they are open today. Script for OP therapy obtained from Dr Pena and faxed to [facility]. Script also given to pt and family along w/[facility] contact #. They were instructed to contact [facility] Monday to discuss private-pay cost for therapy in the home and to schedule appt with them. They were also provided w/this RN HUI contact # and RN CM director, Anamaria, contact #, if further info/assistance is needed. They voice appreciation. Pt using walker while @ [facility] and she does not have one @ home. Family state they are planning on stopping @ the [facility] to get one and if they do not have one available there, they have another location to get one. They deny having further discharge needs or concerns and thanked RN HUI for assistance/info. Jadiel INMAN RN, CM
--- NOTE | 2023-10-13 13:05 | DS.PCM_ITS ---
Providers Date of Admission: 10/11/23 Date of Discharge: 10/13/23 Primary Care Physician: Dr. Houston Collazo DO Reason For Visit: CVA R/O Diagnosis Discharge Diagnosis (1) Vertebrobasilar insufficiency: Status: Acute Code(s): G45.0 - Vertebro-basilar artery syndrome (2) Nystagmus: Status: Acute Code(s): H55.00 - Unspecified nystagmus (3) Vertigo: Status: Acute Code(s): R42 - Dizziness and giddiness Plan Vertigo secondary to vertebrobasilar insufficiency -MRI was unremarkable -Echocardiogram with bubble study is pending -Continue every 4 hours neurochecks -Patient has been loaded with Plavix and will continue aspirin and Plavix for 3 weeks at which point she can transition to monotherapy -Lipitor to 40 mg daily -Lipids are fairly well-controlled -Check hemoglobin A1c -Add IV fluids at 100 cc/h to help maintain blood pressure elevation -Allow for permissive hypertension for 36 hours after symptom onset with as needed antihypertensives for blood pressure greater than 220/110 -PT/OT evaluation -Discussed the case with Dr. Rizvi from [facility] neurology and he recommended that she have ongoing symptoms despite being on aspirin and Plavix that she was should be transferred for endovascular neurosurgery evaluation and recommended that we watch her here for another 24 hours and consider transfer if her symptoms do not continue to improve. -Will try scopolamine patch if not too sedating to help with symptoms Hypokalemia -40 mill equivalents p.o. potassium replacement -Recheck in a.m. Hypertension -Hold metoprolol and allow for permissive hypertension DVT prophylaxis -Enoxaparin CODE STATUS Full code Medications at Discharge Home Medications metoprolol tartrate 50 mg tablet 50 mg PO DAILY 10/11/23 metoprolol tartrate 50 mg tablet (Lopressor) 25 mg PO QHS 10/11/23 aspirin 81 mg chewable tablet 81 mg PO BREAKFAST #0 tabs 10/13/23 atorvastatin 40 mg tablet 40 mg PO QHS #30 tabs 10/13/23 clopidogrel 75 mg tablet 75 mg PO DAILY #30 tabs 10/13/23 scopolamine base 1 mg over 3 days transdermal patch 1 patch transdermal Q3D #4 ea 10/13/23 Hospital Course Procedures 2-D Echocardiogram, EKG and - (CT head/CTA head and neck/MRI brain) Summary of Care Provided Minutes Spent on Discharge: 38 Hospital Course: Mrs. Medina is a 77-year-old female who presented to the emergency department at [facility] on 10/11/2023 complaining of dizziness/lightheadedness. It started at 10 AM on the day of presentation. She reported that she felt dizzy and being off balance with vomiting 5 times. She was so dizzy that she had to lie down. Stroke team was called on arrival to the emergency department but unfortunately patient was outside the window for thrombolytics. The ED stroke neurologist recommended admission with an echo and MRI of the brain. At the time evaluation by the hospitalist on admission she was feeling somewhat better however reporting since positional changes make her worse. Orthostatic vital signs were unremarkable. The CTA of her head and neck which was performed the emergency department did show calcification and thrombus in the R vertebral artery with severe stenosis of the vertebral artery. The case was discussed with the ER neurologist and they felt that she was stable to stay at this institution is neurosurgical intervention is typically not required if symptoms resolve with medical treatment. However, [facility] stroke neurologist did recommend initiating Plavix and aspirin after a Plavix load of 600 mg which was performed. Antihypertensives were held to allow for permissive hypertension and she was maintained on aspirin and Plavix as well as statin. MRI was performed and was negative for any acute infarct but did show moderate atrophy and adv anced periventricular white matter ischemic changes without evidence of acute. She was reevaluated by neurology and they felt that her dizziness was likely related to vertebrobasilar insufficiency and that her if her symptoms did not improve we should transfer for neurosurgical evaluation. Fortunately, her symptoms have continued to resolve. We did place a scopolamine patch to help with any dizziness that she has been having along with her nausea and I will write a prescription for a few of these at discharge but she is going to slowly evaluate how she does off of them. She will also continue aspirin and Plavix as well as statin. Her echocardiogram showed mild concentric LVH with an EF of 65% and stage II diastolic dysfunction with mild to moderate mitral valve insufficiency and a right ventricular systolic pressure estimated to be 39 mmHg. The study was negative for PFO or ASD. Prescriptions have been written for and sent to local pharmacy here at the hospital and she will obtain these prior to discharge. I have recommended follow-up with neurology and she is to call on Monday to set up an appointment. I have also asked her to follow-up with her primary care physician within the next week. She was able to be discharged home with resolving symptoms in stable condition. Physical therapy did evaluate the patient and recommended ongoing outpatient services for vestibular rehab. A prescription was given to her for this. Discharge diagnoses: Vertigo secondary to vertebrobasilar insufficiency Vertebral artery stenosis-right Hypokalemia-resolved Hyperlipidemia Hypertension Physical Exam Narrative Vertigo is overall improving. No further episodes of emesis and has been able to get out of bed with therapy. Still little bit off balance but feeling much better overall. Const alert, oriented x3, no apparent distress and well nourished Constitutional Narrative: Older, white female, sitting up in bed, family at bedside, patient appears comfortable at this time, nontoxic General Appearance: cooperative, comfortable, well kempt and well developed HEENT normocephalic, head/scalp atraumatic and moist oral mucous membranes HEENT Narrative: Mild to moderate hearing loss, dentures in place, Mallampati 2, no thrush Eyes PERRL, EOMs intact bilaterally and conjunctivae normal Eyes Narrative: No scleral icterus Neck no lymphadenopathy and supple Neck Narrative: Trachea line, no thyroid enlargement Resp normal respiratory effort, no retractions, no use of accessory muscles and clear to auscultation bilaterally Auscultation: Negative for rales, rhonchi or wheezes Cardio regular rate, regular rhythm, S1 normal heart sound, S2 normal heart sound, no murmurs, no rub, no gallops and no clicks GI normal to inspection, nondistended, normoactive bowel sounds, soft to palpation and non-tender Extremity no clubbing, cyanosis or edema Extremity Narrative: Pedal pulses are 2+ Skin no rashes or lesions noted, no wounds, skin turgor normal and no jaundice Neuro oriented x3, moves all extremities and no focal motor deficits Neuro Narrative: Mild nystagmus with left lateral gaze but improved, all other cranial nerves are normal Speech: speech normal Psych affect normal Psych Narrative: Eye contact is good, patient is pleasant Weight / BMI Weight Weight: 63.1 kg Body Mass Index (BMI) 23.1 ABG / Lab / Microbiology Data 10/13/23 04:15 10/13/23 04:15 Laboratory: Laboratory Results - last 24 hr 10/13/23 04:15: WBC 7.5, RBC 4.02 L, Hgb 11.9 L, Hct 36.9 L, MCV 91.8, MCH 29.6, MCHC 32.2, RDW Std Deviation 42.5, RDW Coeff of Walter 12.7, Plt Count 198, MPV 11.1, Immature Gran % (Auto) 0.300, Neut % (Auto) 68.5, Lymph % (Auto) 21.1, Mon o % (Auto) 8.7, Eos % (Auto) 1.1, Baso % (Auto) 0.3, Absolute Neuts (auto) 5.2, Absolute Lymphs (auto) 1.58, Nucleated RBC % 0, Sodium 140, Potassium 4.4, Chloride 110 H, Carbon Dioxide 24.0, Anion Gap 6, BUN 17, Creatinine 0.71, Estim Creat Clear Calc 43.74, Est GFR (MDRD) Af Amer 104, Est GFR (MDRD) Non-Af 86, BUN/Creatinine Ratio 24.1 H, Glucose 101, Hemoglobin A1c 5.3, Calcium 9.1, Magnesium 2.3 Radiography Diagnostic Testing: Radiology Impression Echocardiogram 10/11/23 17:40 Interpretation Summary Mild concentric left ventricular hypertrophy. The left ventricular ejection fraction is 65 %. Stage 2 diastolic dysfunction. The left atrium is mildly enlarged. Mild-Moderate (1-2+) mitral valve insufficiency. Right ventricular systolic pressure estimated to be 339 mmHg. Mild tricuspid valve insufficiency. Bubble contrast study is negative for PFO/ASD. Ordering Physician: Renae Garland Referring Physician: Houston Collazo Performed By: Kelsey Estes RDCS, RVT D/C Instructions Discharge Diet: Low fat / Low cholesterol Discharge Activity: Return to Normal Activity Meaningful Use Info Meaningful Use Diagnoses (Choose all that apply): None applicable Discharge Plan Admission Admit Date/Time: 11/22/23 17:36 Primary Reason for Your Visit: Lightheadedness Attending Provider: Chrissy Pena Primary Care Provider: Houston Collazo Consulting Providers: Renae Garland Discharge Orders/Prescriptions Prescriptions: New atorvastatin 40 mg Tablet 40 mg PO QHS Qty: 30 1RF aspirin 81 mg Tablet,Chewable 81 mg PO BREAKFAST Qty: 0 0RF clopidogrel 75 mg Tablet 75 mg PO DAILY Qty: 30 3RF scopolamine base 1 mg over 3 days Patch 3 Day 1 patch transdermal Q3D Qty: 4 0RF Continued metoprolol tartrate 50 mg tablet 50 mg PO DAILY Patient Comments: TAKE ONE TABLET BY MOUTH EVERY MORNING and TAKE 1/2 TABLET BY MOUTH IN THE EVENING metoprolol tartrate [Lopressor] 50 mg tablet 25 mg PO QHS Patient Comments: TAKE ONE TABLET BY MOUTH EVERY MORNING AND TAKE 1/2 TABLET BY MOUTH IN THE EVENING Referrals / Follow Up: Houston Collazo DO [Primary Care Provider] - Within 2 Weeks Romulo Marino MD [Non-Staff -Ordering Privileges] - Within 2 Weeks Disposition Disposition (needs filled in before D/C Order can be placed): Home, Self Care Charges/Coding Visit Charges Inpatient E&M: 39321 Disch Hosp >30min
[2023-10-13 13:12] VITALS: BP 155/83; PULSE 62
== END 2023-10-13 13:52 | disposition home or self-care (01) ==
LOC: ED 16:46 → PCU 18:01
PROVIDERS: Admitting Provider Internal Medicine; Emergency Provider Emergency Medicine; PCP Family Medicine; Visit Provider Internal Medicine
DX: G45.0 Vertebro-basilar artery syndrome (principal); R42 Dizziness and giddiness; H91.90 Unspecified hearing loss, unspecified ear; R11.2 Nausea with vomiting, unspecified; I10 Essential (primary) hypertension; E87.6 Hypokalemia; E78.5 Hyperlipidemia, unspecified; Z79.899 Other long term (current) drug therapy; I08.3 Combined rheumatic disorders of mitral, aortic and tricuspid valves; H55.00 Unspecified nystagmus
CPT/HCPCS: 96366; 36415; 70450; 70496; 70498; 70551; 71045; 80048; 80061; 82962; 83036; 83735; 84443; 84484; 85025; 85610; 85730; 92610; 93005; 93306; 94762; 96361; 96372; 96374; 96376; 97116; 97162; 97165; 99221; 99285; J7030; Q9967; A4216; G0378; J2405

== ENCOUNTER → 2025-04-03 | Outpatient (CLI) | payer OTHER, SELFPAY ==
--- NOTE | 2025-04-03 10:45 | LES_PTH ---
PATIENT: ANGELITA DELGADO LOC: [facility] U#:[id number] AGE/SX: 79/F ROOM: RE04/03/[address]: Dr. Jurgen Cardenas MD : [id number] BED: DIS: 04/03/2025 SPEC #: [id number] RECD: 04/03/25 15:18 STATUS: FRANCIS YULIANA #: [id number] ANH: 04/03/25 10:[address]: Jurgen Cardenas DEPT: SURGICAL PATHOLOGY RECD BY: Mitchell Dahl ENTERED: 04/03/25 16:23 SP TYPE: Lesion OTHR DR: Dr. Houston Collazo, DO Tissues: A - Skin of external ear, NOS Procedures: Surgery Specimen Level IV HEADER OPERATION: Biopsy PRE-OP DIAGNOSIS: Earlobe TISSUE SUBMITTED: A- Left earlobe MICROSCOPIC DIAGNOSIS A. Skin, left earlobe, shave biopsy: * Dermal scar with thick hyalinized collagen bundles - see note. * Note: The histologic features are consistent with hypertrophic scar vs keloid. Recommend clinical correlation. MICROSCOPIC DESCRIPTION Slides are reviewed. GROSS DESCRIPTION A. Received in formalin in a container labeled with the patient's name, date of , and left earlobe is a small unoriented fragment of white-ellington possible skin measuring 0.4 x 0.2 x 0.1 cm. One surface exhibits white-ellington, smooth possible epidermis and the opposing possible resection margin is inked green. No distinct lesion is grossly recognized. The specimen is submitted entirely in A1. [facility] 04-03-2025 CPT:56324
== END | disposition home or self-care (01) ==
LOC: LABSPEC 15:46
PROVIDERS: PCP Family Medicine; Referring Provider Surgery Plastic and Reconstructive Surgery; Visit Provider Surgery Plastic and Reconstructive Surgery
DX: H93.92 Unspecified disorder of left ear (principal)
CPT/HCPCS: 88305